=== PATIENT | female | born 1980 | race Hispanic/Latino ===

== ENCOUNTER 2023-04-20 13:31 | Emergency (ER) | payer BC ==
[2023-04-20] MEDS ORDERED: Dexamethasone 10 MG/ML VIAL ONE (15:02)
[2023-04-20] MEDS ORDERED: Ibuprofen 200 MG TAB ONE (15:02)
[2023-04-20 15:52] LABS: SARS-CoV-2 NAA Rapid Test Not Detected (NotDetected)
== END 2023-04-20 16:46 | disposition home or self-care (01) ==
LOC: ERS 13:31
DX: B34.9 Viral infection, unspecified (principal); R05.9 Cough, unspecified; F17.290 Nicotine dependence, other tobacco product, uncomplicated; Z20.822 Contact with and (suspected) exposure to COVID-19
CPT/HCPCS: 99283; J1100